=== PATIENT | male | born 1955 | race Caucasian/White ===

== ENCOUNTER 2018-01-24 11:23 | Observation (INO) | payer OTHER ==
[~2018-01-24] VITALS: Ht 182.9 cm; Wt 100.0 kg
[2018-01-24 12:21] LABS: BASOPHIL (%) 0.3 % (0-1); BASOPHIL COUNT 0.1 K/uL (0-0.1); EOSINOPHIL (%) 0.2 % (0-5); EOSINOPHIL COUNT 0.1 K/uL (0-0.3); HEMATOCRIT 45.3 % (38.0-50.0); HEMOGLOBIN 15.3 G/DL (12.5-16.6); IMMATURE GRANULOCYTE (%) 1.2 % (0.0-0.7); LYMPHOCYTE (%) 7.9 % (15-42); LYMPHOCYTE COUNT 1.7 K/uL (1.0-2.8); MCHC 33.8 G/DL (30.0-36.0); MCV 91.7 FL (86-99); MONOCYTE (%) 5.3 % (3-12); MONOCYTE COUNT 1.1 K/uL (0-0.8); NEUTROPHIL (%) 85.1 % (45-76); NEUTROPHIL COUNT 18.2 K/uL (1.8-6.4); PLATELET COUNT 286 K/uL (156-360); RBC DIS.WIDTH-CV 12.5 % (11.8-14.6); RBC DIS.WIDTH-SD 42.3 % (39-53); RED BLOOD COUNT 4.94 M/uL (4.00-5.50); WHITE BLOOD COUNT 21.4 K/uL (4.1-10.2)
[2018-01-24 12:29] LABS: PTT 27.5 SEC (25-37)
[2018-01-24 12:30] LABS: ALBUMIN 4.4 g/dL (3.2-4.8); CHLORIDE 103 mEq/L (99-109); POTASSIUM 3.7 mEq/L (3.7-5.4); SODIUM 136 mEq/L (136-147)
[2018-01-24 12:31] LABS: MAGNESIUM 2.1 mg/dL (1.3-2.7)
[2018-01-24 12:32] LABS: GLUCOSE 123 mg/dL (70-99); TOTAL PROTEIN 7.3 g/dL (6.4-8.3)
[2018-01-24 12:34] LABS: TOTAL BILIRUBIN 1.2 mg/dL (0.0-1.0)
[2018-01-24 12:36] LABS: ALKALINE PHOSPHATASE 83 IU/L (3-129); CREATININE 1.5 mg/dL (0.6-1.3); GFR ESTIMATE (CALCULATED) 50 mL/min/ (58.99-99999)
[2018-01-24 12:37] LABS: UREA NITROGEN (BUN) 29 mg/dL (9-23)
[2018-01-24 12:38] LABS: AST (GOT) 478 IU/L (2-34)
[2018-01-24 12:39] LABS: ALT (GPT) 486 IU/L (3-49)
[2018-01-24 12:42] LABS: TROP-I INTERPRETATION NEGATIVE; TROPONIN-I 0.01 ng/mL (0.0-0.30)
[2018-01-24 15:42] LABS: APPEARANCE CLEAR ((CLEAR)); BILIRUBIN NEGATIVE; BLOOD NEGATIVE; COLOR YELLOW ((YELLOW)); GLUCOSE (STRIP) NEGATIVE; KETONES 20; LEUKOCYTES NEGATIVE; NITRITE NEGATIVE; PROTEIN (STRIP) 30; SPECIFIC GRAVITY 1.035 (1.000-1.030); UCUL ADDED? NO; UROBILINOGEN 0.2 MG/DL (0.2-1.0)
[2018-01-24] MEDS ORDERED: CETIRIZINE HCL10 M2 PO (17:33)
[2018-01-24] MEDS ORDERED: AMLODIPINE BESY10 MG PO (17:35)
[2018-01-24] MEDS ORDERED: LOPRESSOR50 MG PO (17:37)
[2018-01-24] MEDS ORDERED: MONOPRIL40 MG PO (17:38)
[2018-01-24] MEDS ORDERED: HYDROCHLOROTHIA25 MG PO (17:38)
[2018-01-24 18:28] LABS: CREATINE KINASE 113 IU/L (1-294)
[2018-01-24 19:21] LABS: TROP-I INTERPRETATION NEGATIVE; TROPONIN-I 0.03 ng/mL (0.0-0.30)
[2018-01-24 20:25] VITALS: BP 141/78
[2018-01-25 00:04] VITALS: BP 115/61
[2018-01-25 01:21] LABS: TROP-I INTERPRETATION NEGATIVE; TROPONIN-I 0.02 ng/mL (0.0-0.30)
[2018-01-25 03:51] VITALS: BP 118/68
[2018-01-25 05:17] LABS: BASOPHIL (%) 0.3 % (0-1); EOSINOPHIL (%) 0.6 % (0-5); EOSINOPHIL COUNT 0.1 K/uL (0-0.3); HEMATOCRIT 37.7 % (38.0-50.0); HEMOGLOBIN 12.3 G/DL (12.5-16.6); IMMATURE GRANULOCYTE (%) 0.5 % (0.0-0.7); LYMPHOCYTE COUNT 1.8 K/uL (1.0-2.8); MCH 30.4 PG (29.0-34.0); MCHC 32.6 G/DL (30.0-36.0); MCV 93.1 FL (86-99); MONOCYTE (%) 7.7 % (3-12); MONOCYTE COUNT 0.8 K/uL (0-0.8); NEUTROPHIL (%) 73.9 % (45-76); RBC DIS.WIDTH-CV 12.6 % (11.8-14.6); RBC DIS.WIDTH-SD 43.4 % (39-53); RED BLOOD COUNT 4.05 M/uL (4.00-5.50); WHITE BLOOD COUNT 10.8 K/uL (4.1-10.2)
[2018-01-25 05:49] LABS: ALBUMIN 3.2 G/DL (3.2-4.8); ALKALINE PHOSPHATASE 46 IU/L (3-129); ALT (GPT) 217 IU/L (3-49); AST (GOT) 155 IU/L (2-34); CHLORIDE 107 MEQ/L (99-109); CREATININE 1.1 MG/DL (0.6-1.3); DIRECT BILIRUBIN 0.1 mg/dL (0.0-0.3); GFR ESTIMATE (CALCULATED) > 59 mL/min/ (58.99-99999); POTASSIUM 3.6 MEQ/L (3.7-5.4); SODIUM 137 MEQ/L (136-147); TOTAL BILIRUBIN 1.2 MG/DL (0.0-1.0); TOTAL PROTEIN 5.7 G/DL (6.4-8.3); UREA NITROGEN (BUN) 17 mg/dL (9-23)
[2018-01-25 05:50] LABS: PLAT.SUFFICIENCY ADEQUATE; PLATELET COUNT 189 K/uL (156-360)
[2018-01-25 05:51] LABS: GLUCOSE 92 mg/dL (70-99)
[2018-01-25 08:40] VITALS: BP 136/77
[2018-01-25 11:36] VITALS: BP 140/67
[2018-01-25 15:44] VITALS: BP 148/62
== END 2018-01-25 17:10 | disposition home or self-care (01) ==
LOC: EME 11:23 → EDOF 18:32 → 4SOUTH 18:32 → ENRESERV 18:33 → 4SOUTH 20:15
PROVIDERS: Emergency Medicine; Hospitalist
DX: R55 Syncope and collapse (principal); R09.02 Hypoxemia; E86.0 Dehydration; N17.9 Acute kidney failure, unspecified; R07.89 Other chest pain; K76.0 Fatty (change of) liver, not elsewhere classified; R79.89 Other specified abnormal findings of blood chemistry; D72.829 Elevated white blood cell count, unspecified; R93.5 Abnormal findings on diagnostic imaging of other abdominal regions, including retroperitoneum; I10 Essential (primary) hypertension; Z82.49 Family history of ischemic heart disease and other diseases of the circulatory system; E66.01 Morbid (severe) obesity due to excess calories; Z68.29 Body mass index [BMI] 29.0-29.9, adult
CPT/HCPCS: 70450; 71045; 71275; 74177; 76705; 80048; 80053; 80076; 81003; 82550 91; 83605; 83735; 84484; 85025; 85379; 85610; 85730; 87040; 87070; 87205; 93005; 93306; 94799; 99202; 99281; 99285; G0378; G8978 GP CH; G8979 GP CH; G8980 GP CH; G8987 GO CH; G8988 GO CH; G8989 GO CH; J0295; J0456; J1650; J7030; J7040; J7050